=== PATIENT | male | born 1990 | race Caucasian/White ===

== ENCOUNTER → 2020-04-22 | Outpatient (CLI) | payer OTHER, SELFPAY | END | disposition home or self-care (01) | LOC: LABSPEC 10:32 | PROVIDERS: PCP Family Medicine; Referring Provider Family Medicine; Visit Provider Family Medicine | DX: Z03.818 Encounter for observation for suspected exposure to other biological agents ruled out (principal) | CPT/HCPCS: 87635; C9803; U0005; U0003 ==

== ENCOUNTER 2021-06-30 08:15 | Outpatient (CLI) | payer OTHER, SELFPAY ==
--- NOTE | 2021-06-30 08:30 | MRI_ITS ---
STUDY: MRI BRAIN WITH AND WITHOUT CONTRAST REASON FOR EXAM: Male, 30 years old. VF [facility]OT[facility] Previous reported medical history: New migraine headaches, with dizzy spells and loss of balance. TECHNIQUE: Standardized multiplanar fat and water weighted pulse sequences were obtained. 20ML IV DOTAREM was administered for the contrast portion of the examination. COMPARISON: MRI of the brain dated SEPTEMBER 20, 2011. MRI of the orbits dated June 30, 2021 FINDINGS: Normal size of the ventricles and extra-axial spaces for the patient''s age. Normal white matter tracts of the supratentorial brain. There is no evidence for recent intracranial ischemia or other cause of cytotoxic edema on diffusion weighted imaging (DWI). Normal T2* images of the brain without demonstrated susceptibility artifact. There is no demonstrated hemosiderin stain. There are no white matter hyperintensities. Specifically, there are no focal areas of white matter gliosis which are occasionally associated with vasospastic migraine headaches. No hydrocephalus or midline shift or focal parenchymal edema. No abnormal enhancement of the parenchyma or meninges or dura. No focal lesions are present. Normal bilateral basal ganglia. Normal thalami. There is no extra-axial fluid accumulation. Normal flow voids within the major intracranial circulation suggesting patency by spin echo criteria. Normal venous enhancement. There is no enhancing intra-axial or extra-axial abnormality. Normal sella turcica, pituitary gland, infundibular stalk, optic chiasm and hypothalamus. Normal tectal plate and pineal gland. Normal midbrain, samira and medulla. Normal cerebellum. Normal basal cisterns. Normal bilateral temporal bones. Normal bilateral internal auditory canals. No demonstrated orbital abnormality, within the constraints of a routine brain study. Normal visualized paranasal sinuses. Normal calvarium and skull base. Normal visualized soft tissue structures. Normal visualized upper cervical spine. IMPRESSION: 1. Normal unenhanced and enhanced MRI of the brain. 2. There are no white matter hyperintensities. Specifically, there are no focal areas of white matter gliosis which are occasionally associated with vasospastic migraine headaches. 3. No abnormal enhancement of the parenchyma or meninges or dura. No focal lesions are present. Electronically Signed: Brad Barney MD at 15:31 EDT , STUDY: MRI ORBITS WITH AND WITHOUT CONTRAST REASON FOR EXAM: Male, 30 years old. VF [employer]AL [employer]OTOMA TECHNIQUE: Standardized fat and water weighted pulse sequences were obtained in all 3 orthogonal planes, pre-and post contrast administration. was administered for the contrast portion of the examination. COMPARISON: MRI of the brain dated June 30, 2021. FINDINGS: Normal bilateral globes. Normal bilateral optic nerve sheath complexes and optic nerves. Normal bilateral intraconal and extraconal spaces. Normal bilateral extraocular muscles. No demonstrated fluid distention of the optic nerve sheaths. No edema is seen in the globes or retinal regions. No abnormal enhancement or enlargement of the optic nerve complexes or extraocular nerves. Normal optic chiasm and post-chiasmatic tracts. Normal sella turcica, pituitary gland, infundibular stalk, and hypothalamus. Normal bilateral cavernous sinuses. Normal tectal plate and pineal gland. Normal flow voids within the major intracranial circulation suggesting patency by spin echo criteria. Normal size of the ventricles and extra-axial spaces for the patient''s age. Normal white matter tracts of the supratentorial brain. Normal bilateral basal ganglia. Normal thalami. There is no extra-axial fluid accumulation. Normal midbrain, samira and medulla. Normal cerebellum. Normal basal cisterns. MRI/Brain W/WO Contrast IMPRESSION: 1. Normal enhanced and unenhanced MRI of the orbits. 2. No demonstrated fluid distention of the optic nerve sheaths. No edema is seen in the globes or retinal regions. No abnormal enhancement or enlargement of the optic nerve complexes or extraocular nerves. Electronically Signed: Brad Barney MD at 10:18 EDT ,
== END 2021-06-30 23:59 | disposition home or self-care (01) ==
LOC: MRI 08:15
PROVIDERS: PCP Family Medicine; Referring Provider Ophthalmology; Visit Provider Ophthalmology
DX: H53.413 Scotoma involving central area, bilateral (principal)
CPT/HCPCS: 70553; A9575

== ENCOUNTER 2021-07-15 08:26 | Outpatient (CLI) | payer OTHER, SELFPAY ==
[2021-07-15 08:50] LABS: Absolute Lymphocyte Count 2.02 X10^3/uL (0.83-4.51); Absolute Neutrophil Count 3.2 X10^3/uL (2.0-7.7); Basophil# 0.04 X10^3/uL; Basophil% 0.7 % (0-1); Eosinophil# 0.12 X10^3/uL; Hematocrit 45.8 % (40-54); Hemoglobin 16.1 g/dL (13.0-16.5); Lymphocyte # 2.02 X10^3/ul (0.83-4.51); Lymphocyte % 34.4 % (19-41); Mean Corp Hgb Conc 35.2 g/dL (32-36); Mean Corpuscular Volume 82.5 fL (80-94); Monocyte# 0.47 X10^3/uL; NRBC Flagged by Analyzer 0 % (0-5); Neutrophil # 3.21 X10^3/uL (2.7-7.7); Neutrophil % 54.6 % (47-70); Platelet Count 256 K/mm3 (150-450); RBC Distribution Width CV 12.2 % (11.6-14.6); RBC Distribution Width SD 36.6 fl (35.1-43.9); Red Blood Count 5.55 M/mm3 (4.6-6.2); White Blood Count 5.9 K/mm3 (4.4-11.0)
[2021-07-15 09:16] LABS: Vitamin B12 484 pg/mL (211-911)
[2021-07-15 09:30] LABS: ALB/GLOB Ratio 1.4 RATIO (0.9-2.4); AST(SGOT) 20 U/L (15-37); Alanine Aminotransfer ALT/SGPT 43 U/L (16-61); Albumin, Serum 4.4 g/dL (3.2-5.0); Alkaline Phosphatase 87 U/L (45-117); Anion Gap 5 (5-15); BUN 15 mg/dL (7-18); BUN/Creat Ratio 13.8 RATIO (10-20); Calcium,Total 9.4 mg/dL (8.5-10.1); Chloride 107 mmol/L (98-107); Creatinine, Serum 1.09 mg/dL (0.70-1.30); EST Glomerular Filtration Rate 83 mL/min (>60); Est Glom Filt Rate - Afr Amer 100 mL/min (>60); Globulin 3.1 g/dL (2.2-4.2); Glucose 102 mg/dL (74-106); Potassium 4.3 mmol/L (3.5-5.1); Protein, Total 7.5 g/dL (6.4-8.2); Sodium Level 141 mmol/L (136-145)
[2021-07-17 16:55] LABS: Arsenic 7245 < 1 ug/L (0-9); Lead, Blood < 1 ug/dL (0-4); Mercury, Blood 85324 < 1.0 ug/L (0.0-14.9)
== END 2021-07-15 23:59 | disposition home or self-care (01) ==
LOC: PAVLAB 08:27
PROVIDERS: PCP Family Medicine; Referring Provider Ophthalmology; Visit Provider Ophthalmology
DX: H53.413 Scotoma involving central area, bilateral (principal)
CPT/HCPCS: 36415; 80053; 82175; 82607; 82746; 83655; 83825; 85025

== ENCOUNTER → 2021-10-22 | Outpatient (CLI) | payer OTHER, SELFPAY | END | disposition home or self-care (01) | PROVIDERS: PCP Family Medicine; Visit Provider Family Medicine | DX: U07.1 COVID-19 (principal) | CPT/HCPCS: 87635; U0003; U0005 ==

== ENCOUNTER → 2022-08-02 | Outpatient (CLI) | payer OTHER, SELFPAY | END | disposition home or self-care (01) | LOC: CVS 14:51 | PROVIDERS: PCP Family Medicine; Referring Provider Surgery; Visit Provider Surgery | DX: I87.2 Venous insufficiency (chronic) (peripheral) (principal) ==

== ENCOUNTER 2022-08-03 06:09 | Day surgery (SDC) | payer OTHER, SELFPAY ==
--- NOTE | 2022-07-30 20:26 | HP.PCM_ITS ---
HPI - General General Date of Admission: 08/03/22 Date of Service: 08/03/22 Chief Complaint: Chronic venous sufficiency, varicose veins with inflammation, leg pain, swelling-Right lower extremity HPI Narrative SCOOTER UNDERWOOD, is a 31 M who presents with a long history of painful varicose veins in his right lower extremity. He complains of pain, aching, burning, and itching. He also experiences swelling in his right lower extremity. He denies a history of thrombophlebitis. He has undergone no prior vein procedures in the past he is active, and sleeps on a flat surface at night. Venous duplex examination has been performed, which reveals segmental valvular incompetence involving his right great saphenous vein in the right small saphenous vein. The implications of this finding were discussed with the patient in detail. The options of management were fully explained. Conservative treatment measures were implemented, which included leg elevation, graduated compression stockings, avoidance of idle standing and sitting, active lifestyle, weight control measures, and [id number]-[id number]-[id number] analgesics. Despite these measures, for well over a year, the patient's symptoms have persisted. His symptoms adversely affect daily activities, quality of life, and job functions. [facility] Medical History (Updated 07/30/22 @ 20:[address] Chandu Saldana MD) Alcohol use Asthma Chronic venous insufficiency Dizziness Head ache History of edema History of pain when walking Injury of head and neck Leg pain, right Migraines Non-smoker Seasonal allergies Swelling of right lower extremity Varicose veins of right lower extremity with inflammation Vascular disease Wears glasses Home Medications loratadine 10 mg tablet (Claritin) 10 mg PO DAILY 07/27/22 [History Last Taken Unknown] naproxen sodium 220 mg tablet (Aleve) 220 mg PO DAILY 07/27/22 [History Last Taken Unknown] sumatriptan 20 mg/actuation nasal spray 20 mg intranasal PRN PRN Migraine Headache 07/27/22 [History Last Taken Unknown] Allergy/AdvReac Type Severity Reaction Status Date / Time No Known Allergies Allergy Verified 07/27/22 09:32 Family History Father Asthma Severe allergy Grandfather Thyroid cancer Mother Hypertension Surgical History No history of previous surgery Social History Smoking Status: Never smoker alcohol intake: current details: occasional glass of wine substance use type: does not use what type of physical activity do you participate in: none Physical Exam Const alert, oriented x3, no apparent distress and well nourished Constitutional Narrative: The patient is of normal body habitus. General Appearance: cooperative and well developed Orientation / Consciousness: awake, oriented to person, oriented to place and oriented to time HEENT normocephalic, head/scalp atraumatic and moist oral mucous membranes Head and Scalp: normal to inspection, normocephalic and atraumatic External Ear: external ears normal Eyes PERRL and EOMs intact bilaterally General Eye: normal appearance of both eyes Neck supple General: trachea midline Resp normal respiratory effort, normal air movement, no retractions and no use of accessory muscles Effort and Inspection: able to speak in complete sentences Cardio regular rate, regular rhythm, S1 normal heart sound and S2 normal heart sound GI normal to inspection, nondistended, normoactive bowel sounds, soft to palpation and non-tender Extremity normal capillary refill, no clubbing, cyanosis or edema and no calf tenderness Extremity Narrative: Peripheral extremities are warm and well-perfused. Pedal pulses are palpable bilaterally. No significant swelling or edema are noted. There are no open wounds or ulcerations. Multiple large varicosities are noted on the right anteromedial calf. Clifford phlebectatica is noted near the right medial malleolus. General Extremity: Negative for clubbing or cyanosis Skin General Skin Exam: no breakdown and turgor normal Lesions: no lesions Rashes: no rashes Neuro oriented x3, CN's II-XII intact bilaterally, no focal motor deficits and no sensory deficits noted Speech: speech normal Psych thought process normal, cooperative and affect normal Appearance: grossly normal and appropriate Attitude: calm Activity / Motor Behavior: appropriate eye contact Speech: normal speech Mood & Affect: euthymic mood Thought Process: normal thought process Thought Content: normal thought content Attention / Concentration: attention grossly intact Assessment & Plan Assessment/Plan (1) Chronic venous insufficiency: (2) Varicose veins of right lower extremity with inflammation: (3) Leg pain, right: (4) Swelling of right lower extremity: PLAN: Plan This is a 31-year-old male with a longstanding history of venous disease in his right lower extremity. He suffers from chronic venous insufficiency, varicose veins with inflammation, leg pain, and leg swelling. The venous duplex examination has revealed incompetence of the right great saphenous vein in the right small saphenous vein. The implications of this diagnosis have been discussed with the patient in detail. The options of management have been fully explained. The patient has implemented conservative treatment measures for a prolonged period of time, including leg elevation, avoidance of idle standing and sitting, graduated compression stockings, weight control measures, active lifestyle, [id number] analgesics, etc. Despite these measures, the patient continues to have symptoms which adversely affect daily activities quality of life, and job functions. The indications and risks of endovenous laser ablation of the right great saphenous vein and the right small saphenous vein have been discussed with the patient in detail. The procedure has been discussed in detail. Expectations have been explained. The patient's questions have been answered. Plan: The patient is to be admitted for elective endovenous laser ablation of the right great saphenous vein and right small saphenous vein. The indications and risks of the procedure have been thoroughly explained. The patient indicates his desire to proceed. The appropriate preprocedure consent process has been undertaken.
[2022-08-03] VITALS (7 sets, daily range): BP systolic 131–146; BP diastolic 89–96; PULSE 77–89; RESP 16; TEMP 36.2–36.8; O2SAT 97–98; BMI 31.2
[2022-08-03] MEDS: Lactated Ringers 1,000 ML 150 ML IV (07:16)
[2022-08-03] MEDS: Enoxaparin 30 MG/0.3 ML Syringe SC (07:30)
--- NOTE | 2022-08-03 08:48 | PCM.PN.SRG ---
Objective Data Objective Data Vital Signs: Vital Signs Temp Pulse Resp BP Pulse Ox O2 Del Method 97.9 F 79 16 137/96 H 98 Room Air 08/03/22 08:37 08/03/22 08:37 08/03/22 08:37 08/03/22 08:37 08/03/22 08:37 08/03/22 08:37 Oxygen Delivery Method Room Air Weight: 230 lb 9.656 oz Body Mass Index (BMI) 31.2 Assessment & Plan Assessment/Plan (1) Chronic venous insufficiency: (2) Varicose veins with inflammation: (3) Leg pain, right: PLAN: Plan The patient presented today for the purpose of elective endovenous laser ablation of the right great saphenous vein and the right small saphenous vein. The appropriate preoperative consent process and preparation were undertaken. The patient was taken to the operating room suite, and was placed supine upon the operating room table. General anesthesia was administered by the anesthesia staff. As the operative nursing staff was preparing to prep the leg as a prelude to the procedural intervention, it was noted that the patient had a very intense, erythematous rash in the groin bilaterally and the perineal area. The rash was thought to represent tinea cruris. The rash was not evident with the patient in the supine position with legs in the neutral position. However, upon externally rotating the right lower extremity in preparation for surgical prep the extent and intensity of the rash was appreciated. The decision was made to postpone the procedure, and the patient was awakened from anesthesia. He was delivered to the postanesthesia care unit in stable condition. The situation has been thoroughly explained to the patient and his family, informing them of the reasons for postponement. The patient is to be discharged, and has been provided a prescription for Lotrimin antifungal cream 1%, which is to be applied topically to the affected area twice daily. The patient is to follow-up in the office setting in approximately 2 to 3 weeks, to reassess the status of the cutaneous fungal infection. Once the fungal infection has resolved, the patient will be rescheduled for the right lower extremity venous ablation procedure.
== END 2022-08-03 09:21 | disposition home or self-care (01) ==
LOC: SDC 06:10 → AC 06:11
PROVIDERS: PCP Family Medicine; Referring Provider Surgery; Visit Provider Surgery
PROC: (CPT 36478; principal; 2022-08-03 07:45)
DX: J45.909 Unspecified asthma, uncomplicated (principal); I83.11 Varicose veins of right lower extremity with inflammation; I83.811 Varicose veins of right lower extremity with pain; I83.891 Varicose veins of right lower extremity with other complications; B35.6 Tinea cruris; Z53.09 Procedure and treatment not carried out because of other contraindication; Z79.899 Other long term (current) drug therapy
CPT/HCPCS: 36478; 01520; J7040; J7120

== ENCOUNTER → 2023-05-31 | Outpatient (CLI) | payer OTHER, SELFPAY ==
--- NOTE | 2023-05-31 11:05 | RAD_ITS ---
STUDY: X-RAY CHEST REASON FOR EXAM: Male, 32 years old. Cough. Coronary dust inhalation. TECHNIQUE: Frontal and lateral views of the chest. COMPARISON: None. FINDINGS: The lungs are clear and expanded. There is no demonstrated pleural abnormality. Normal size heart. Normal mediastinum and raoul. Normal visualized pulmonary arteries. Normal visualized aortic arch and descending thoracic aorta. Normal visualized thoracic spine. Normal visualized ribs, clavicles, and shoulders. No abnormality of the visualized soft tissue structures of the upper abdomen. RAD/Chest PA and Lateral IMPRESSION: Normal x-ray examination of the chest. Electronically Signed: Rodrigo Chapman MD at 11:43 EST ,
== END | disposition home or self-care (01) ==
LOC: MTRAD 11:05
PROVIDERS: PCP Family Medicine; Referring Provider Physician Assistant; Visit Provider Physician Assistant
DX: R05.9 Cough, unspecified (principal)
CPT/HCPCS: 71046

== ENCOUNTER 2023-08-30 08:56 | Day surgery (SDC) | payer OTHER, SELFPAY ==
[2023-08-30 09:33] VITALS: BP 132/102; PULSE 78; RESP 16; TEMP 36.9; O2SAT 100; BMI 33.0
[2023-08-30] MEDS: Lactated Ringers 1,000 ML 15 ML IV (09:49)
--- NOTE | 2023-08-30 09:59 | NURSING ---
pt has ezcema in right groin, Dr Franco aware
--- NOTE | 2023-08-30 11:27 | PCM.HP.STD ---
HPI - General HPI Narrative SCOOTER UNDERWOOD, is a 33 M who presents with right lower extremity painful varicose veins refractory to compression. Venous duplex revealed reflux throughout the GSV and enlarged SFJ. He presents for ligation SFJ, ablation GSV. [facility] Medical History (Updated 08/15/23 @ 08:28 by Greta Townsend) Eczema Heartburn Inhalation injury Acute bronchitis, unspecified Varicose veins with inflammation Swelling of right lower extremity Leg pain, right Varicose veins of right lower extremity with inflammation Chronic venous insufficiency Wears glasses Injury of head and neck Non-smoker Asthma History of pain when walking History of edema Vascular disease Migraines Head ache Seasonal allergies Home Medications ?Medication ?Instructions ?Recorded ?Last Taken ?Type loratadine 10 mg tablet (Claritin) 10 mg PO DAILY 07/27/22 Unknown History multivitamin 1 tab PO DAILY 06/30/23 Unknown History naproxen 220 mg-pseudoephedrine 1 tab PO DAILY 08/15/23 Unknown History 120 mg ER tablet, extend release,12 hr (Aleve-D Sinus and Headache) Allergy/AdvReac Type Severity Reaction Status Date / Time No Known Allergies Allergy Verified 08/30/23 09:32 Family History Father Asthma Severe allergy Grandfather Thyroid cancer Mother Hypertension Surgical History (Updated 08/15/23 @ 08:28 by Greta Townsend) History of ligation of vein Social History Smoking Status: Never smoker alcohol intake: current details: occasional glass of wine substance use type: does not use what type of physical activity do you participate in: none ROS Constitutional Constitutional: Denies chills, fever(s), frequent falls, lethargy or weakness Eyes Eyes: Denies blind spots, change in vision or loss of vision ENT HEENT: Denies bleeding gums, hoarseness or sore throat Cardiovascular Cardiovascular: Denies abdominal pain, bluish discoloration of hand/feet, chest pain with activity, claudication, cold extremities, cyanosis, dyspnea on exertion, erythema on extremities, irregular heart rhythm, leg edema, leg ulcers, numbness in extremities or weakness in extremities Respiratory/Chest Respiratory/Chest: Denies cough, excessive phlegm production, shortness of breath at rest, shortness of breath with exertion or wheezing Gastrointestinal Gastrointestinal: Denies anorexia, change in stool character, constipation, diarrhea, melena or rectal bleeding Genitourinary Genitourinary: Denies dysuria or hematuria Musculoskeletal Musculoskeletal: Denies abnormal gait Integumentary Integumentary: Reports other Details: ; Denies erythema, non-healing lesions or wounds Neurologic Neurologic: Denies abnormal speech, focal weakness, headache(s), loss of vision, numbness, paresthesias or sensory deficit Hematologic/Lymphatic Hematologic/Lymphatic: Denies easy bleeding, easy bruising or lymphadenopathy Vital Signs Vital Signs Vital Signs: 08/30/23 09:33 08/30/23 09:33 Temperature 98.4 F Temperature Source Temporal Pulse Rate 78 Respiratory Rate 16 Respiratory Pattern Normal Blood Pressure 132/102 H Blood Pressure Mean 112 Blood Pressure Source Monitor Blood Pressure Position Semi-Fowlers Blood Pressure Location Right Arm Pulse Ox 100 Oxygen Delivery Method Room Air Weight Weight: 237 lb 3.478 oz Body Mass Index (BMI) 33.0 Physical Exam Const alert, oriented x3, no apparent distress and healthy appearing General Appearance: cooperative; Negative for combative or lethargic Orientation / Consciousness: awake Exam Limitations: no limitations HEENT Head and Scalp: normocephalic and atraumatic Eyes EOMs intact bilaterally General Eye: normal appearance of both eyes Neck full ROM, no lymphadenopathy and thyroid normal General: trachea midline; Negative for lymphadenopathy or tenderness Thyroid: thyroid normal Resp normal respiratory effort and no use of accessory muscles Effort and Inspection: Negative for labored, stridor or audible wheezes Cardio regular rate and regular rhythm Back/Spine Cervical Spine: cervical ROM normal Extremity full ROM, normal capillary refill and no clubbing, cyanosis or edema Skin no rashes or lesions noted and no wounds Neuro oriented x3, CN's II-XII intact bilaterally, no focal motor deficits and no sensory deficits noted Psych thought process normal, cooperative, affect normal, speech normal and activity/motor behavior normal Assessment & Plan Assessment/Plan (1) Varicose veins of right lower extremity with pain: PLAN: -right SFJ ligation, GSV ablation
--- NOTE | 2023-08-30 14:18 | PCM.OPRPT ---
Problems Associated Problem List Diagnoses (1) Varicose veins of right lower extremity with pain: Report of Operation Date of Procedure: 08/30/23 Pre-Operative Diagnosis: right leg varicose veins with pain Post-Operative Diagnosis: same Surgery/Procedure Performed:: right saphenofemoral junction ligation right great saphenous vein chemical ablation Surgeon: Dexter Franco Type of Anesthesia: General Estimated Blood Loss (mL): 15 Description of Procedure: HPI: Patient is a 33-year-old male with right lower extremity painful varicose veins refractory to compression therapy. He had venous duplex imaging which revealed reflux throughout including the saphenofemoral junction which was enlarged significantly. He had multiple varicosities emanating from the proximal calf great saphenous vein. Given the extent of his reflux he is taken now for saphenofemoral junction ligation and chemical ablation of the great saphenous vein. Description of procedure: Upon obtaining form consent and verification correct patient procedure site patient was taken to the [facility] where he was placed under general esthesia. He was then positioned prepped draped you sterile fashion and timeout performed. Ultrasound was used to evaluate the great saphenous vein along its course. In the proximal calf at the confluence of the large varicosities it return to normal caliber for the remainder of the mid to distal calf. The saphenofemoral junction was then marked an oblique incision made and then Bovie electrocautery used to dissect down through the subcutaneous tissue. Self-retaining retractor put in position further dissection carried down until the saphenous vein was visualized. Sharp dissection then used to dissect free the saphenofemoral junction with sidebranches ligated with silk ties and divided. Once we had fully dissected the saphenofemoral junction circumferentially and space created for clamping we then turned our attention to the ablation access. Under ultrasound guidance the great saphenous vein in the mid calf was accessed micropuncture needle wire. This then exchanged out for the 7 [place] ablation sheath. This the glue delivery guide was advanced under ultrasound guidance and positioned just below intended clamp position. The dilator was then withdrawn and the glue delivery catheter advanced through the guide. The vessel was then clamped proximal and distal with care taken to ensure that the clamp was above the catheter. We then instilled glue per outside deliverer instructions along the entirety of the length of the great saphenous vein from just inferior to the clam position to the proximal calf at the location of the varicosity confluence. The delivery guide and catheter then withdrawn followed by the 7 [place] sheath and manual pressure held for 5 minutes with satisfactory stasis noted. The saphenofemoral junction was then divided and oversewn proximal and distal with 6-0 Prolene in running fashion. Clamps were then removed and satisfactory stasis was noted. Incision closed with 2-0 Vicryl, 3-0 Vicryl, 4 Monocryl and Dermabond for the skin. Patient was then taken to the recovery room with anticipated discharged home.
--- NOTE | 2023-08-30 14:20 | EX.PCM.DISCH ---
Discharge Instructions Diet Discharge Diet: No restrictions Activity May shower in (days): 2 Lifting Restrictions: do not lift > 20 lbs for 2 weeks Additional Activity Instructions:: do not submerge incision for 2 weeks Dressing / Incision Call your doctor if your incision/area has: Sudden Increased Bleeding, Increased Pain/ Swelling, Increased Redness and Foul Smelling Discharge Call your doctor if you observe: Fever of 101 or Higher Remove Dressing in: 2 days Cleanse incision/area with: Soap & Water Follow Up Care Test Results: Test results from this visit will be discussed in further detail at your follow-up appointment, if applicable. Discharge Plan Admission Attending Provider: Dexter Franco Primary Care Provider: Kang Olson Instructions Print Language: Upper Sorbian Discharge Orders/Prescriptions Prescriptions: New oxycodone 5 mg tablet 5 mg PO Q8H PRN (Reason: pain) 2 Days Qty: 6 0RF Continued multivitamin Tablet 1 tab PO DAILY loratadine [Claritin] 10 mg Tablet 10 mg PO DAILY Aleve-D Sinus and Headache 220-120 mg tablet extended release 12 hr 1 tab PO DAILY Referrals / Follow Up: Kang Olson DO [Primary Care Provider] - Disposition Disposition (needs filled in before D/C Order can be placed): Home, Self Care
[2023-08-30 14:35] VITALS: BP 132/99; BP 146/98; PULSE 78; RESP 16; TEMP 36.7; O2SAT 98
[2023-08-30 14:40] VITALS: BP 132/99; BP 138/95; PULSE 85; RESP 16; O2SAT 97
[2023-08-30 14:45] VITALS: BP 132/99; BP 143/93; PULSE 83; RESP 16; O2SAT 97
[2023-08-30 14:50] VITALS: BP 132/99; BP 140/98; PULSE 86; RESP 16; TEMP 36.6; O2SAT 98
[2023-08-30 15:22] VITALS: BP 132/99
== END 2023-08-30 16:10 | disposition home or self-care (01) ==
LOC: SDC 09:03 → AC 09:25
PROVIDERS: PCP Family Medicine; Referring Provider Surgery Trauma Surgery; Visit Provider Surgery Trauma Surgery
PROC: (CPT 37607; principal; 2023-08-30 10:45)
DX: I83.811 Varicose veins of right lower extremity with pain (principal); M79.89 Other specified soft tissue disorders; I83.11 Varicose veins of right lower extremity with inflammation
CPT/HCPCS: 36482; 37700; A4648; C1894; J7120; J2405

== ENCOUNTER → 2023-09-02 | Outpatient (CLI) | payer OTHER, SELFPAY ==
--- NOTE | 2023-09-02 12:52 | VDLE_ITS ---
Reason For Study: S/P RLE GSV Chemical Ablation RIGHT LEFT CFV is compressible, spontaneous, phasic, FV is compressible, spontaneous, phasic, competent and demonstrates normal competent and demonstrates normal augmentation. augmentation. FV is compressible, spontaneous, phasic, competent and demonstrates normal augmentation. POP V is compressible, spontaneous, phasic, competent and demonstrates normal augmentation. T/P Trunk is compressible. PTV is compressible. RT PerV is compressible. GSV Ankle to prox calf is compressible GSV Knee to 3 cm distal to SFJ is dilated and NONCOMPRESSIBLE with intraluminal echoes. Finding is consistent with recent chemical ablation. Unable to visualize SFJ due to recent surgical ligation incision bandages/patch. Calf Varicosities noted to be partially compressible with intraluminal echoes at prox calf and compressible at mid/dist calf. Procedure This is a venous duplex using B-mode, color flow and spectral Doppler. Exam performed in department. The exam was diagnostic. VL/Venous Duplex US, Unilateral Interpretation Summary Deep veins of the right lower extremity are patent and compressible segmentally . There is no evidence of right lower extremity deep vein thrombosis. Right great saphenous vein and adjacent varicosities occluded consistent with r ecent ablation. Ordering Physician: Norma Mathur Referring Physician: Kang Olson Performed By: Aidan Chand RVT
== END | disposition home or self-care (01) ==
LOC: CVS 12:51
PROVIDERS: PCP Family Medicine; Referring Provider Physician Assistant; Visit Provider Physician Assistant
DX: I83.811 Varicose veins of right lower extremity with pain (principal); M79.89 Other specified soft tissue disorders
CPT/HCPCS: 93971